=== PATIENT | female | born 1985 | race Caucasian/White ===

== ENCOUNTER 2021-04-12 15:00 | Emergency (ER) | payer OTHER ==
[2021-04-12 16:30] LABS: INFLUENZA A NAA NEGATIVE (NEGATIVE)
[2021-04-12 17:29] LABS: CORONAVIRUS 2019 SARS-COV-2 POSITIVE (NEGATIVE)
[2021-04-12] MEDS ORDERED: VENTOLIN HFA IN18 GM INH (17:37)
[2021-04-12] MEDS ORDERED: MEDROL 4MG DOSEP4 MG PO (17:37)
[2021-04-12] MEDS ORDERED: ZPAK PO (17:37)
== END 2021-04-12 17:45 | disposition home or self-care (01) ==
LOC: FER 15:00
PROVIDERS: Nurse Practitioner Family
DX: U07.1 COVID-19 (principal); J45.909 Unspecified asthma, uncomplicated; Z88.8 Allergy status to other drugs, medicaments and biological substances
CPT/HCPCS: 71045; 96372; J1100; J1885; U0002